=== PATIENT | male | born 1950 | race Caucasian/White ===

== ENCOUNTER 2019-06-12 18:58 | Emergency (ER) | payer MEDICARE, SELFPAY ==
[2019-06-12 19:05] VITALS: BP 90/59; PULSE 60; RESP 16; TEMP 36.9; O2SAT 97; BMI 25.1
--- NOTE | 2019-06-12 19:21 | ED_ITS ---
HPI - Extremity Problem General Chief complaint: Extremity Problem,Nontraumatic Stated complaint: CASTING IS TO TIGHT LEFT LEG Time Seen by Provider: 06/12/19 19:15 Source: patient Mode of arrival: Wheelchair Limitations: no limitations History of Present Illness HPI Narrative: 68-year-old male who underwent a orthopedic procedure to his left foot earlier today at [facility]. Was discharged home. Was placed in a splint. Had a popliteal block for the procedure. Sent home with pain medication. Since that time he has noticed increasing pain to his left foot where the procedure was. He thought that the splint that was placed on was too tight. Upon arrival patient had already removed a portion of the plaster of the splint. States that he is taking the pain medication the prescribed to him. MD Complaint: extremity pain Related Data Allergies Allergy/AdvReac Type Severity Reaction Status Date / Time No Known Drug Allergies Allergy Verified 06/12/19 19:24 Review of Systems Constitutional Constitutional: Denies fever(s) Cardiovascular Cardiovascular: Denies chest pain and Denies dyspnea Respiratory Respiratory: Denies dyspnea Gastrointestinal Gastrointestinal: Denies abdominal pain Musculoskeletal Comments: Left foot pain Integumentary/Breasts Comments: Bleeding from left foot Neurologic Comments: Is regaining some sensation in the left foot from his popliteal block Hematologic/Lymphatic Hematologic/Lymphatic: Denies easy bleeding and Denies easy bruising Patient History Medical History Foot pain, left (Acute) Social History Smoking Status: Never smoker Exam Initial Vital Signs Initial Vital Signs: Vital Signs Temperature 98.4 F 06/12/19 19:05 Pulse Rate 60 06/12/19 19:05 Respiratory Rate 16 06/12/19 19:05 Blood Pressure 90/59 L 06/12/19 19:05 Pulse Oximetry 97 06/12/19 19:05 Const General: cooperative, comfortable and well developed Orientation: alert and awake Resp Effort & Inspection: normal respiratory effort Cardio Rate: regular rate Pulses: dorsalis pedis present on the left Skin Other: Patient with 3 surgical incision 1 on the medial 1 on the lateral and 1 over the posterior portion of the left foot. Surgical stitches are in place. They're covered with a Vaseline gauze. The lateral incision is bleeding. Neuro Other: Does have sensation to the left foot. Appropriate for what I would expect after having a popliteal block earlier today Extrem Other: Left knee unremarkable. Left calf unremarkable. Psych Appearance: grossly normal and well kempt Course Orders Ordered: Discontinued Medications Hydromorphone HCl (Dilaudid) 0.5 mg IV NOW ONE Stop: 06/12/19 19:43 Last Admin: 06/12/19 19:55 Dose: 0.5 mg Documented by: DAKOTA Hydromorphone HCl (Dilaudid) 0.5 mg IV NOW ONE Stop: 06/12/19 20:08 Last Admin: 06/12/19 20:11 Dose: 0.5 mg Documented by: DAKOTA Sodium Chloride (Normal Saline 0.9%) 1,000 mls @ 1,000 mls/hr IV BOLUS ONE Stop: 06/12/19 20:28 Last Infusion: 06/12/19 20:26 Dose: 0 mls/hr Documented by: JOSE DANIEL Admin: 06/12/19 19:41 Dose: 1,000 mls/hr Documented by: JOSE DANIEL Vital Signs Vital signs: Vital Signs - 8 hr 06/12/19 19:05 06/12/19 21:15 Temperature 98.4 F Pulse Rate 60 62 Respiratory Rate 16 Blood Pressure 90/59 L 125/67 Pulse Oximetry 97 MDM - Extremity (Nontraumatic) MDM Narrative Medical decision making narrative: Patient had already loosen the plaster splint to his left lower extremity prior to arrival. We removed the splint the rest of the way. There was saturation of blood from the ABD pad into the plaster. The lateral incision was oozing blood. Was dark in appearing. Incisions look appropriate. His calf was unremarkable. No x-rays were obtained on this visit. I've low suspicion for compartment syndrome in his foot. I did apply direct pressure with a Conner bandage in other bandage is over the lateral incision for a period of time. It did appear to stop the bleeding however when the bandage was removed did start to ooze again. Pressure was applied again and when re- evaluated and again started to bleed when the pressure was removed. I did discuss the case with Podiatry at [facility] where the patient had his procedure done today. Their recommendation was to place quite a bit of a bulky dressing over the area and use the Ortho Glass we have here just to keep the patient's foot in a neutral position. This was done. Patient was given return precautions. He was instructed that if it starts to bleed through the dressing that was placed that he should return to his operative provider for further evaluation. He stated that he felt better after removal of the old splint. Discharge Plan Departure Patient Disposition: Home Clinical Impression: Post-operative pain Discharge Date/Time: 06/12/19 21:15 Instructions: How to Use Crutches, How to Take Care of Your Splint Activity Restrictions/Additional Instructions: The on-call tube backer recommended that you keep your foot elevated as much as possible. If you start to notice bleeding through the bandages that we place this evening recommend traveling to [facility] for a follow-up. You can return to this emergency department if you wish. Keep all of your scheduled medical appointments. Referrals: Marek Stephens MD [Primary Care Provider] -
[2019-06-12] MEDS: SODIUM CHLORIDE 0.9% 1,000 ML 1000 ML IV (19:41)
[2019-06-12] MEDS: HYDROMORPHONE 0.5 MG INJ IV ×2 (19:55→20:11)
--- NOTE | 2019-06-12 21:09 | PC.NURSE ---
assisted provider place stirrup and posterior left leg splint. Provider assessed cms and ok'd discharge.
--- NOTE | 2019-06-12 21:10 | PC.NURSE ---
splint placed for protecting surgical site.
[2019-06-12 21:15] VITALS: BP 125/67; PULSE 62
== END 2019-06-12 21:15 | disposition home or self-care (01) ==
PROVIDERS: Emergency Provider Emergency Medicine; Family Provider Family Medicine; PCP Family Medicine
DX: G89.18 Other acute postprocedural pain (principal)
CPT/HCPCS: 29705; 96374; 99284; J1170

== ENCOUNTER → 2020-07-22 10:28 | Outpatient (CLI) | payer MEDICARE, SELFPAY ==
[2020-07-22] MEDS: COVID-19 VACC #1, MRNA(MOD) 100 MCG/0.5 ML VIAL IM (10:37)
== END ==
PROVIDERS: Visit Provider Internal Medicine
DX: Z23 Encounter for immunization (principal)
CPT/HCPCS: 0011A; 91301

== ENCOUNTER → 2020-08-19 08:52 | Outpatient (CLI) | payer MEDICARE, SELFPAY ==
[2020-08-19] MEDS: COVID-19 VACC #2, MRNA(MOD) 100 MCG/0.5 ML VIAL IM (08:57)
== END ==
PROVIDERS: Visit Provider Internal Medicine
DX: Z23 Encounter for immunization (principal)
CPT/HCPCS: 0012A; 91301

== ENCOUNTER → 2021-09-19 08:16 | Outpatient (CLI) | payer MEDICARE, SELFPAY ==
[2021-09-20 16:36] LABS: PSA Free % 36.7 % (.); PSA, Total 0.9 ng/mL (0.0-4.0)
== END ==
PROVIDERS: PCP Student in an Organized Health Care Education/Training Program; Referring Provider Anesthesiology; Visit Provider Anesthesiology
DX: R97.20 Elevated prostate specific antigen [PSA] (principal)
CPT/HCPCS: 36415; 84153; 84154

== ENCOUNTER 2023-06-05 02:21 | Emergency (ER) | payer MEDICARE, SELFPAY ==
[2023-06-05] VITALS (9 sets, daily range): BP systolic 98–123; BP diastolic 62–70; PULSE 72–83; RESP 16–29; O2SAT 93–95; BMI 27.3
--- NOTE | 2023-06-05 02:33 | DI.RAD.S_ITS ---
PROCEDURE: XR CHEST 1V INDICATIONS: L SIDED CHEST PAIN TECHNIQUE: One view of the chest was acquired. COMPARISON: None. FINDINGS: Surgical changes and devices: None. Lungs and pleura: Lungs are clear. No pleural effusions or pneumothorax. Mediastinum: Mediastinal contours appear normal. Heart size is normal. Bones and chest wall: No suspicious bony lesions. Overlying soft tissues appear unremarkable. IMPRESSION: No acute cardiopulmonary abnormality is seen. This report is concordant with the overnight preliminary interpretation. Dictated by: Jose Alberto Ng M.D. on 06/05/2023 at 7:45 Approved by: Jose Alberto Ng M.D. on 06/05/2023 at 7:45
--- NOTE | 2023-06-05 02:33 | ED.CHESTPAIN ---
HPI - Chest Pain General Chief Complaint: Chest Pain Stated Complaint: CHEST PAIN Time Seen by Provider: 06/05/23 02:24 History of Present Illness HPI narrative: 72yoM with no reported PMH prsents by private vehicle from home for L sided chest aching that does not radiate beginning approximately 40min prior to arrival. Occured while drinking wine with friends and gradually strengthened in intensity. Pain began to ease after arrival to the emergency department. Patient denies ever feeling chest pain like this before. Denies personal or family history of heart disease, denies history of tobacco abuse. 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 Related Data Allergies Allergy/AdvReac Type Severity Reaction Status Date / Time No Known Drug Allergies Allergy Verified 06/12/19 19:24 Review of Systems Review of Systems Narrative: Negative except as noted above Patient History Medical History (Updated 06/05/23 @ 05:15 by Rody Nguyen MD) Foot pain, left Social History Smoking Status: Never smoker Smoking Status: Never smoker alcohol intake frequency: a few times a week Substance Use Type: does not use Exam Initial Vital Signs Initial Vital Signs: Vital Signs Pulse Rate 76 06/05/23 02:27 Respiratory Rate 18 06/05/23 02:27 Pulse Oximetry 95 06/05/23 02:27 Oxygen Delivery Method Room Air 06/05/23 02:27 Const: Awake, alert, no acute distress, nontoxic appearing Cardiac: regular rate, regular rhythm RESP: unlabored, clear bilaterally, no wheezing GI: Atraumatic, soft, nontender, nondistended MSK: Atraumatic, full range of motion, pulses equal Skin: Warm, Dry, intact, no rashes Neuro: AO x3, CN II-XII grossly intact, moves all extremities, gait normal Course Course Course Narrative: Patient with no reported past medical history presenting for significant left-sided chest pain. EKGs normal sinus rhythm without ischemic findings. Incomplete right bundle-branch block, no recent priors for comparison. Patient states that since he is arrived in the emergency department his pain has gradually eased and he is currently pain-free. Orders Ordered: ED Orders 06/05/23 02:28 BNP [NT-proBNP (BNP-Adult 18+)] Stat CBC Auto Diff [Complete Blood Count AUTO DIFF] Stat CMP [Comprehensive Metabolic Panel] Stat D Dimer Stat PT [Prothrombin Time INR] Stat Troponin & CK Cardiac Panel Stat 06/05/23 02:33 Chest [XR chest 1V] Stat EKG-12 Lead Stat 06/05/23 04:30 Trop I [Troponin I] Stat Reevaluation(s) Reevaluation #1: Laboratory work is reviewed, no acute abnormalities identified. Initial troponin undetectable. Patient resting comfortably in bed, continues to be pain-free. Recommended 2 hour troponin, patient in agreement. Elected to leave prior to receiving results of 2 hour troponin, I will call the patient if there is an increase in troponin levels. At time of discharge patient continues to be pain-free. Patient advised to follow up with Cardiology after discharge. Reevaluation #2: Repeat 2 hour troponin undetectable. Vital Signs Vital signs: Vital Signs - 8 hr 06/05/23 02:27 06/05/23 02:29 06/05/23 02:30 Pulse Rate 76 80 83 Respiratory Rate 18 16 24 Blood Pressure Pulse Oximetry 95 94 94 Oxygen Delivery Method Room Air Room Air Room Air 06/05/23 02:32 06/05/23 02:32 06/05/23 02:46 Pulse Rate 79 Respiratory Rate 19 Blood Pressure 123/70 113/66 Pulse Oximetry 95 Oxygen Delivery Method Room Air 06/05/23 02:46 06/05/23 03:00 06/05/23 03:00 Pulse Rate 72 76 Respiratory Rate 18 18 Blood Pressure 106/64 Pulse Oximetry 95 93 Oxygen Delivery Method Room Air Room Air 06/05/23 03:30 06/05/23 03:30 06/05/23 04:00 Pulse Rate 77 79 Respiratory Rate 22 24 Blood Pressure 98/64 Pulse Oximetry 94 94 Oxygen Delivery Method Room Air Room Air 06/05/23 04:00 06/05/23 04:30 06/05/23 04:30 Pulse Rate 76 Respiratory Rate 29 H Blood Pressure 104/62 109/65 Pulse Oximetry 95 Oxygen Delivery Method MDM - Chest Pain Differential Diagnosis Differential diagnosis: Likely atypical chest pain, st elevation myocardial infarction and costochondritis Lab Data 06/05/23 02:28 06/05/23 02:28 Labs: Lab Results 06/05/23 06/05/23 Range/Units 02:28 04:28 WBC 7.6 (4.5-11.0) X10^3/uL RBC 4.45 L (4.5-5.9) X10^6/uL Hgb 14.4 (13.5-17.5) g/dL Hct 42.4 (41-53) % MCV 95.4 (80-100) fL MCH 32.4 (26-34) PG MCHC 34.0 (30-36) % RDW 13.5 (11.6-14.8) % Plt Count 187 (150-400) X10^3/uL Neut % (Auto) 37.1 L (50-75) % Lymph % (Auto) 50.7 H (25-40) % [place] % (Auto) 10.9 (3-14) % Eos % (Auto) 1.0 L (2-4) % Baso % (Auto) 0.3 (0-2) % Neut # (Auto) 2800 (0605-0609) /uL Lymph # (Auto) 3800 (9755-3391) /uL [place] # (Auto) 800 (0-900) /uL Eos # (Auto) 100 (0-450) /uL Baso # (Auto) 0 (0-100) /uL PT 12.0 (9.4-12.5) SECONDS INR 1.0 (0.9-1.3) D-Dimer 350 (<500) ng/ml Sodium 139 (137-145) mmol/L Potassium 3.7 (3.4-5.1) mmol/L Chloride 104 (98-107) mmol/L Carbon Dioxide 23 (22-32) mmol/L BUN 18 (9-20) mg/dL Creatinine 0.84 (0.66-1.25) mg/dL Estimated GFR > 60 (>60) mL/min BUN/Creatinine Ratio 21.4 (6-22) Glucose 103 (80-110) mg/dL Calcium 9.3 (8.4-10.2) mg/dL Total Bilirubin 0.8 (0.2-1.3) mg/dL AST 35 (17-59) IU/L ALT 30 (<50) IU/L Alkaline Phosphatase 56 (38-126) U/L Total Creatine Kinase 99 (55-170) U/L Troponin I < 0.012 < 0.012 (0.01-0.034) ng/mL NT-Pro-B Natriuret Pep 76 (<125) pg/mL Total Protein 7.3 (6.3-8.2) g/dL Albumin 4.4 (3.5-5.0) g/dL Globulin 2.9 (1.7-4.1) g/dL Albumin/Globulin Ratio 1.5 (1.0-2.8) ECG Data Interpretation: Normal sinus rhythm, rate 80bpm, normal axis, no ST-T wave changes, no STEMI Discharge Plan Departure Patient Disposition: Home Clinical Impression: Chest pain Qualifiers: Chest pain type: other chest pain Qualified Code(s): R07.89 - Other chest pain Instructions: DI for Chest Pain Referrals: Elodia Drake MD [Primary Care Provider] - Eunice Wylie DO [Physician] - Stand Alone Forms: Patient Portal/API
[2023-06-05 02:43] LABS: Add Manual Diff / Slide Review NO; Basophils Absolute Auto 0 /uL (0-100); Basophils Percent Auto 0.3 % (0-2); Eosinophils Absolute Auto 100 /uL (0-450); Hematocrit 42.4 % (41-53); Hemoglobin 14.4 g/dL (13.5-17.5); Lymphocytes Absolute Auto 3800 /uL (1100-4500); Lymphocytes Percent Auto 50.7 % (25-40); Mean Corpuscular Hemoglobin 32.4 PG (26-34); Mean Corpuscular Volume 95.4 fL (80-100); Monocytes Absolute Auto 800 /uL (0-900); Monocytes Percent Auto 10.9 % (3-14); Neutrophils Absolute Auto 2800 /uL (1500-7000); Neutrophils Percent Auto 37.1 % (50-75); Platelet Count 187 X10^3/uL (150-400); Red Blood Cell Count 4.45 X10^6/uL (4.5-5.9); Red Cell Distribution Width 13.5 % (11.6-14.8); White Blood Cell Count 7.6 X10^3/uL (4.5-11.0)
[2023-06-05 02:55] LABS: Alanine Aminotransferase 30 IU/L (<50); Albumin 4.4 g/dL (3.5-5.0); Albumin Globulin Ratio 1.5 (1.0-2.8); Alkaline Phosphatase 56 U/L (38-126); Aspartate Aminotransferase 35 IU/L (17-59); BUN Creatinine Ratio 21.4 (6-22); Bilirubin Total 0.8 mg/dL (0.2-1.3); Blood Urea Nitrogen 18 mg/dL (9-20); Calcium 9.3 mg/dL (8.4-10.2); Carbon Dioxide 23 mmol/L (22-32); Chloride 104 mmol/L (98-107); Creatine Kinase 99 U/L (55-170); Estimated Glomerular Filt Rate > 60 mL/min (>60); Globulin 2.9 g/dL (1.7-4.1); Glucose 103 mg/dL (80-110); HEMOLYSIS < 15 (0-50); Potassium 3.7 mmol/L (3.4-5.1); Sodium 139 mmol/L (137-145); Total Protein 7.3 g/dL (6.3-8.2)
[2023-06-05 03:07] LABS: NT-proBNP (BNP-Adult 18+) 76 pg/mL (<125); Troponin I < 0.012 ng/mL (0.01-0.034)
[2023-06-05 03:08] LABS: D Dimer 350 ng/ml (<500)
[2023-06-05 05:04] LABS: Troponin I < 0.012 ng/mL (0.01-0.034)
== END 2023-06-05 04:45 | disposition home or self-care (01) ==
PROVIDERS: Emergency Provider Emergency Medicine; PCP Student in an Organized Health Care Education/Training Program
DX: R07.89 Other chest pain (principal)
CPT/HCPCS: 71045; 80053; 82550; 83880; 84484; 85025; 85379; 85610; 93005; 99283

== ENCOUNTER → 2023-12-19 13:41 | Outpatient (CLI) | payer MEDICARE, SELFPAY ==
--- NOTE | 2023-12-19 13:42 | DI.ECHO.S_ITS ---
Version: 1 Study ID: [id number] [place] [address] Name: ДМИТРИЙ KLEIN Study Date: 12/19/2023, 2: 16 PM : 1950 BP: 128 / 85 mmHg Gender: Male Height: 70 in Age: 73 Years Weight: 180 lb BSA: 2.00 mA? Ordering: ANDREWS COHEN Referring: ANDREWS COHEN Clinician: Venessa Patten Reason For Study: SICK SINUS SYNDROME History: Summary Statements 1.. The left ventricular contractility is normal. Estimated ejection fraction is greater than 60 % with no segmental wall motion abnormalities. No LVH present. Grade 1 diastolic dysfunction present. 2. The right ventricular contractility is normal. 3. There is severe left atrial enlargement noted. All other cardiac chambers are normal size. 4. Mild to moderate mitral regurgitation noted. 5. Mild tricuspid regurgitation with estimated pulmonary systolic artery pressure 27 mmHg. 6. No obvious intracardiac shunts noted. 7. No obvious intracardiac masses or thrombi appreciated. 8. No hemodynamically significant pericardial effusion noted. Conclusion: Mild diastolic dysfunction with mild to moderate mitral regurgitation and severe left atrial enlargement. Procedure: A two-dimensional transthoracic echocardiogram with color flow and Doppler was performed. The study quality was technically adequate. There is no prior echocardiogram noted for this patient. The patient was in sinus bradycardia with heart rates between 52-59 bpm during the exam. Left Ventricle: The left ventricle is normal in size and wall thickness. The ejection fraction is estimated to be 55-60%. Right Ventricle: The right ventricle is normal in size and function. Atria: The left atrium is severely dilated. Right atrial size is normal. There is no Doppler evidence for an interatrial shunt. Mitral Valve: The mitral valve is normal in structure and function. There is mild to moderate mitral regurgitation. Aortic Valve: The aortic valve is trileaflet. The aortic valve opens well. There is no aortic valve stenosis. No aortic regurgitation is present. Tricuspid Valve: The tricuspid valve is normal in structure and function. There is mild tricuspid regurgitation. The right ventricular systolic pressure is estimated to be at least 27 mmHg based on an estimated right atrial pressure of 3 mm Hg. Pulmonic Valve: The pulmonic valve leaflets are thin and pliable; valve motion is normal. There is a trace or physiologic amount of pulmonic regurgitation. Great Vessels: The aortic root is normal size. The dimensions of the ascending aorta are normal. The IVC is of normal diameter and collapses greater than 50% with a sniff. This suggests a low right atrial pressure of 3 mm Hg. Pericardium/ Pleura: There is no pericardial effusion. There is no pleural effusion. 2D and M-Mode Measurements and Calculations LVIDd: 4.9 cm LVOT diam: 2.41 cm LVIDs: 3.1 cm Ao root diam: 3.6 cm IVSd: 1.15 cm asc Aorta Diam: 3.4 cm LVPWd: 0.94 cm Ao Arch Diam (Prox Trans): 3.1 cm LV sampson. diameter/BSA (cm/m^2): 2.48 LV sys. 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 IVC diam: 0.98 cm LA A2 area: 28.1 wool shearing supervisor? RA area: 13.6 wool shearing supervisor? LA length (vol): 5.6 cm RA long axis: 4.9 cm LA vol: 101.1 ml RA vol: 32.0 ml LA vol index: 50.6 ml/mA? RA : 16.0 ml/mA? Doppler Measurements and Calculations Ao V2 max: 132.0 cm/sec LVOT Max Pasquale: 97.8 cm/sec Ao V2 mean: 95.3 cm/sec LV V1 max P.8 mmHg Ao V2 VTI: 29.0 cm LV V1 VTI: 23.0 cm Ao max P.0 mmHg SV(LVOT): 104.3 ml Ao mean P.0 mmHg TERELL(I,D): 3.6 wool shearing supervisor? TERELL(V,D): 3.4 wool shearing supervisor? TERELL indexed to BSA (cm^2/m^2): 1.80 sev ratio: 0.79 MV E max pasquale: 52.7 cm/sec MV dec time: 0.18 sec MV A max pasquale: 44.0 cm/sec MV E/A: 1.20 Med Peak E' Pasquale: 4.4 cm/sec Lat Peak E' Pasquale: 6.0 cm/sec E/e' average: 10.4 TR max pasquale: 246.1 cm/sec PA mean P.38 mmHg TR max P.2 mmHg PA V2 max: 83.4 cm/sec Electronically signed by: Andrews Cohen 12/19/2023, 8: 08 PM
--- NOTE | 2023-12-19 13:43 | DI.NM.S_ITS ---
PROCEDURE: NM EXERCISE TREADMILL NON NUC COMPARISON: None. INDICATIONS: Sick sinus syndrome FINDINGS: Rest ECG sinus bradycardia 49 bpm. Hans protocol 9:47, maximum heart rate 189 bpm (129% peak predicted), maximum blood pressure 184/98, 10.1 METS, ALEJANDRA -51%. Exercise ECG sinus tachycardia, no ST segment changes or arrhythmia. Rare PVCs noted in recovery. The patient did not complain of exercise-induced chest discomfort. IMPRESSION: Low risk study. No evidence of exercise-induced ischemia or arrhythmia. Normal hemodynamic response with evidence of chronotropic competence. Excellent exercise capacity. Dictated by: Eunice Wylie D.O. on 12/19/2023 at 17:14 Approved by: Eunice Wylie D.O. on 12/19/2023 at 17:19
== END ==
PROVIDERS: PCP Family Medicine; Referring Provider Internal Medicine; Visit Provider Internal Medicine
DX: I49.5 Sick sinus syndrome (principal); I08.1 Rheumatic disorders of both mitral and tricuspid valves
CPT/HCPCS: 93017; 93306

== ENCOUNTER → 2024-09-01 08:18 | Outpatient (CLI) | payer MEDICARE, SELFPAY | LOC: RESP 08:19 | PROVIDERS: PCP Family Medicine; Referring Provider Family Medicine; Visit Provider Family Medicine | DX: R05.3 Chronic cough (principal); I25.10 Atherosclerotic heart disease of native coronary artery without angina pectoris; K80.20 Calculus of gallbladder without cholecystitis without obstruction | CPT/HCPCS: 71260; 94060; 94726; 94729; Q9967 ==

== ENCOUNTER → 2024-09-01 15:05 | Outpatient (CLI) | payer MEDICARE, SELFPAY ==
--- NOTE | 2024-09-01 15:24 | DI.CT.S_ITS ---
PROCEDURE: CT CHEST W CON INDICATIONS: chronic cough TECHNIQUE: After the administration of intravenous contrast, 5 mm thick sections acquired from the pulmonary apices to the posterior costophrenic angles. 1 mm axial lung, 5 mm thick coronal and sagittal reformats and 7 mm axial MIP were acquired. For radiation dose reduction, the following was used: automated exposure control, adjustment of mA and/or kV according to patient size. COMPARISON: None. FINDINGS: Image quality: Diagnostic. Lower Neck: No enlarged lymph nodes. Thyroid: No thyroid nodules which require sonographic follow up, per consensus guidelines. Axillae: No enlarged lymph nodes. Chest Wall: Unremarkable. Bones: No suspicious osseous lesion. Lungs and Pleura: No pneumothorax or pleural effusions. No consolidation or suspicious nodules. Minimal dependent atelectasis. Central airways are clear. Heart: Heart size is normal. Severe coronary artery calcifications. No pericardial effusion. Thoracic Vessels: The aorta and pulmonary arteries demonstrate normal size. No aortic dissection. Mild calcified plaque. Mediastinum and Lisette: No enlarged lymph nodes. Esophagus: No wall thickening. No hiatal hernia. Upper Abdomen: Small gallstones. IMPRESSION: 1. No consolidation. Minimal dependent atelectasis. 2. No pleural effusion. No bronchiectasis. 3. No mass or significant pulmonary nodules. 4. Small gallstones. Dictated by: Jose Alberto Ng M.D. on 09/02/2024 at 15:04 Approved by: Jose Alberto Ng M.D. on 09/02/2024 at 15:11
== END ==
LOC: CT 15:06
PROVIDERS: PCP Family Medicine; Referring Provider Family Medicine; Visit Provider Family Medicine
DX: R05.3 Chronic cough (principal); I25.10 Atherosclerotic heart disease of native coronary artery without angina pectoris; K80.20 Calculus of gallbladder without cholecystitis without obstruction
CPT/HCPCS: 71260; Q9967